=== PATIENT | female | born 1980 | race African-American/Black ===

== ENCOUNTER 2018-09-05 00:18 | Emergency (ER) | payer MEDICAID ==
[~2018-09-05] VITALS: Ht 165.1 cm; Wt 112.0 kg
[2018-09-05 02:51] LABS: CHLORIDE 104 mEq/L (98-107)
[2018-09-05] MEDS ORDERED: KETOROLAC 30MG/ML VIAL IV ONE (03:00)
[2018-09-05] MEDS ORDERED: IBUPROFEN 800MG TABLET PO ONE (03:00)
[2018-09-05 03:19] LABS: BASOPHILS % 0.8 % (0.0-2.0); EOSINOPHILS % 2.9 % (0.0-5.0); HEMATOCRIT. 34.6 % (36.0-48.0); HEMOGLOBIN. 11.5 g/dL (12.0-16.0); LYMPHOCYTES % 32.5 % (20.0-50.0); MEAN CORPUSCULAR HEMOGLOBIN 27.5 pg (28.0-32.0); MEAN CORPUSCULAR VOLUME 82.4 fL (81.0-99.0); MEAN PLATELET VOLUME 7.3 fl (7.4-10.4); MONOCYTES % 9.6 % (2.0-8.0); NEUTROPHILS % 54.2 % (40.0-76.0); PLATELET 357 x1000/uL (130-400); RED CELL DISTRIBUTION WIDTH 15.4 % (11.6-14.6)
[2018-09-05 04:10] VITALS: BP 113/77
== END 2018-09-05 04:51 | disposition home or self-care (01) ==
LOC: ER 00:18
DX: J45.909 Unspecified asthma, uncomplicated (principal); M25.562 Pain in left knee
CPT/HCPCS: 36415; 71045; 81025; 83880; 84484; 85379; 93005; 93971; 99285

== ENCOUNTER 2018-10-07 14:40 | Emergency (ER) | payer MEDICAID ==
[~2018-10-07] VITALS: Ht 165.1 cm; Wt 111.0 kg
[2018-10-07] MEDS ORDERED: DIPHENHYDRAMINE 25MG CAPSULE PO ONE (17:30)
[2018-10-07] MEDS ORDERED: METHYLPREDNISOLONE SOD SUCC 125 MG/2 ML VIAL IV ONE (17:30)
[2018-10-07 18:42] LABS: BASOPHILS % 0.6 % (0.0-2.0); EOSINOPHILS % 1.4 % (0.0-5.0); HEMATOCRIT. 36.5 % (36.0-48.0); HEMOGLOBIN. 11.9 g/dL (12.0-16.0); LYMPHOCYTES % 28.9 % (20.0-50.0); MEAN CORPUSCULAR VOLUME 82.9 fL (81.0-99.0); MEAN PLATELET VOLUME 7.3 fl (7.4-10.4); MONOCYTES % 8.2 % (2.0-8.0); NEUTROPHILS % 60.9 % (40.0-76.0); PLATELET 396 x1000/uL (130-400); RED CELL DISTRIBUTION WIDTH 15.6 % (11.6-14.6)
[2018-10-07 18:44] LABS: CHLORIDE 105 mEq/L (98-107)
[2018-10-07 19:02] LABS: HCG SCREEN NEGATIVE
[2018-10-07 20:36] VITALS: BP 136/93
== END 2018-10-07 20:38 | disposition home or self-care (01) ==
LOC: ER 14:40
DX: R06.02 Shortness of breath (principal); R22.1 Localized swelling, mass and lump, neck; J45.909 Unspecified asthma, uncomplicated
CPT/HCPCS: 36415; 80053; 84443; 84703; 85025; 93005; 96374; 99284; J2930; 99283; Q0163